=== PATIENT | female | born 1980 | race Asian ===

== ENCOUNTER 2019-07-10 15:38 | Emergency (ER) | payer MEDICAID ==
[~2019-07-10] VITALS: Ht 165.1 cm; Wt 57.0 kg
[2019-07-10 17:17] LABS: HEMATOCRIT 42.2 % (36.0-47.0); HEMOGLOBIN 14.1 g/dl (12.0-15.5); MEAN CORPUSCULAR HEMOGLOBIN 30.2 pg (27.0-33.0); MEAN CORPUSCULAR HGB CONC 33.4 g/dl (32.0-36.5); MEAN CORPUSCULAR VOLUME 90.4 fl (80.0-96.0); PLATELET COUNT, AUTOMATED 573 10^3/uL (150-450); RED BLOOD COUNT 4.67 10^6/uL (4.00-5.40); WHITE BLOOD COUNT 10.9 10^3/uL (4.0-10.0)
[2019-07-10 17:41] LABS: AMPHETAMINES LEVEL URINE NEGATIVE (NEGATIVE); BARBITURATES URINE NEGATIVE (NEGATIVE); BENZODIAZEPINES URINE NEGATIVE (NEGATIVE); CANNABINOIDS URINE NEGATIVE (NEGATIVE); COCAINE METABOLITE URINE NEGATIVE (NEGATIVE); METHADONE URINE NEGATIVE (NEGATIVE); OPIATES URINE NEGATIVE (NEGATIVE); PHENCYCLIDINE URINE NEGATIVE (NEGATIVE)
[2019-07-10 17:42] LABS: HCG, SERUM QUALITATIVE NEGATIVE (NEGATIVE)
[2019-07-10 17:52] LABS: ALBUMIN 4.2 GM/DL (3.2-5.2); ALT/SGPT 14 U/L (12-78); BILIRUBIN,DIRECT < 0.1 MG/DL (0.0-0.2); BILIRUBIN,TOTAL 0.2 MG/DL (0.2-1.0); BLOOD UREA NITROGEN 11 MG/DL (7-18); CALCIUM LEVEL 9.1 MG/DL (8.5-10.1); CARBON DIOXIDE LEVEL 27 MEQ/L (21-32); CHLORIDE LEVEL 104 MEQ/L (98-107); CREATININE FOR GFR 0.72 MG/DL (0.55-1.30); ETHYL ALCOHOL (ETHANOL) < 0.003 % (0.000-0.010); GLOMERULAR FILTRATION RATE > 60.0 (>60); GLUCOSE, FASTING 89 MG/DL (70-100); POTASSIUM SERUM 3.9 MEQ/L (3.5-5.1); SALICYLATE LEVEL < 1.7 MG/DL (5.0-30.0); SODIUM LEVEL 137 MEQ/L (136-145); TOTAL PROTEIN 8.1 GM/DL (6.4-8.2)
[2019-07-10 17:53] LABS: ACETAMINOPHEN LEVEL < 2.0 UG/ML (10.0-30.0)
--- NOTE | 2019-07-10 20:23 | ECGEPIP ---
[facility] - ED Test Date: 2019-07-10 Pat Name: PEÑA LINDER Department: Room: - Gender: Female River [employer]: [email or web address] : 1980 Requested By: TONYA Avendano Order Number: [id number] Reading MD: Eugene Jimenez Measurements Intervals [place] Rate: 76 P: 2 MS: 132 QRS: 81 QRSD: 93 T: 61 QT: 366 QTc: 413 Interpretive Statements SINUS RHYTHM NSTTW ABNORMALITIES NO PRIORS FOR COMPARISON Electronically Signed on 07-10-2019 20:23:10 EDT by Eugene Jimenez
[2019-07-10 22:56] VITALS: BP 117/75
== END 2019-07-10 23:31 ==
LOC: M ED 15:38
DX: R41.89 Other symptoms and signs involving cognitive functions and awareness (principal); Z86.59 Personal history of other mental and behavioral disorders; R94.31 Abnormal electrocardiogram [ECG] [EKG]; Z65.2 Problems related to release from prison
CPT/HCPCS: 36415; 80048; 80076; 80307; 84443; 84703; 85027; 93005; 99284; G0480